=== PATIENT | female | born 1970 | race Two or more races ===

== ENCOUNTER → 2024-03-24 | Outpatient (CLI) | payer MEDICAID, SELFPAY ==
--- NOTE | 2024-03-24 14:47 | XR_ITS ---
Examination: Lumbar spine, 5 views Technique: Lumbar spine AP, lateral, coned lateral lower lumbar spine, bilateral obliques 5 views Exam date and time: March 24, 2024 1500 hours INDICATIONS: Patient fell 2 years ago with injury to lower back, lower back pain radiating down the right leg, more severe lower back pain the last 3 weeks FINDINGS: Adequate alignment lumbar vertebral bodies on the lateral view No lumbar fracture Mild to moderate diffuse lumbar disc narrowing most prominent L4-L5 Moderate lumbar spondylosis No spondylolisthesis IMPRESSION: Mild to moderate diffuse lumbar degenerative disc disease with spinal stenosis
== END | disposition home or self-care (01) ==
LOC: CDIM 14:42
PROVIDERS: PCP Nurse Practitioner Family; Referring Provider Nurse Practitioner Family; Visit Provider Nurse Practitioner Family
DX: M51.369 Other intervertebral disc degeneration, lumbar region without mention of lumbar back pain or lower extremity pain (principal); M48.061 Spinal stenosis, lumbar region without neurogenic claudication
CPT/HCPCS: 72110

== ENCOUNTER → 2024-05-10 | Outpatient (CLI) | payer MEDICAID, SELFPAY ==
--- NOTE | 2024-05-10 11:00 | XR_ITS ---
Examination: Screening digital mammography, bilateral Computer aided detection 3-D breast Tomosynthesis, bilateral Date and time of exam: 05/10/2024, 10:42 AM Comparisons: December 2012 through October 2015 Indications: Screening Technique: Nonmagnified MLO, CC views of the breasts to been obtained, reconstructed from 3-D Tomosynthesis images. R2 computer aided detection program utilized for evaluation of suspicious masses and/or abnormal calcifications. 3-D Tomosynthesis images obtained. Technologist: Findings: There are scattered areas of fibroglandular density. No evidence of abnormal masses or suspicious calcifications. Impression: BI-RADS category 1: Negative findings (within normal) Recommend 1 year follow-up mammogram
== END | disposition home or self-care (01) ==
LOC: CDIM 10:37
PROVIDERS: Referring Provider Nurse Practitioner Family; Visit Provider Nurse Practitioner Family
DX: Z12.31 Encounter for screening mammogram for malignant neoplasm of breast (principal); R92.313 Mammographic fatty tissue density, bilateral breasts
CPT/HCPCS: 77063; 77067